=== PATIENT | male | born 1985 ===

== ENCOUNTER 2018-12-27 03:11 | Emergency (ER) | payer BC ==
[2018-12-27] MEDS ORDERED: Ketorolac Tromethamine 30 MG/ML VIAL ONE (03:51)
== END 2018-12-27 04:00 | disposition home or self-care (01) ==
LOC: ERS 03:11
DX: K08.89 Other specified disorders of teeth and supporting structures (principal); F41.9 Anxiety disorder, unspecified; F32.9 Major depressive disorder, single episode, unspecified; F17.200 Nicotine dependence, unspecified, uncomplicated
CPT/HCPCS: 96372; 99282; J1885